=== PATIENT | male | born 1990 | race African-American/Black ===

== ENCOUNTER 2016-04-01 11:26 | Emergency (ER) | payer OTHER | END 2016-04-01 16:14 | disposition home or self-care (01) | LOC: D.ER 11:26 | DX: S16.1XXA Strain of muscle, fascia and tendon at neck level, initial encounter (principal); Y04.2XXA Assault by strike against or bumped into by another person, initial encounter; Y93.89 Activity, other specified; Y92.019 Unspecified place in single-family (private) house as the place of occurrence of the external cause; S00.412A Abrasion of left ear, initial encounter; F17.200 Nicotine dependence, unspecified, uncomplicated ==